=== PATIENT | male | born 1935 | race Caucasian/White ===

== ENCOUNTER 2021-12-18 12:01 | Emergency (ER) | payer OTHER ==
[~2021-12-18] VITALS: Ht 172.7 cm; Wt 65.8 kg
[2021-12-18 12:20] VITALS: BP_SYST 147
[2021-12-18 17:27] LABS: BASOPHILS % (AUTO) 0.4 % (0.0-2.0); EOSINOPHILS % (AUTO) 0.3 % (0.0-4.0); HEMATOCRIT 33.5 % (36-54); LYMPHOCYTES # (AUTO) 0.9 K/uL (1.0-5.5); LYMPHOCYTES % (AUTO) 13.9 % (20.5-51.5); MEAN CORPUSCULAR HEMOGLOBIN 29 pg (27-31); MEAN CORPUSCULAR HGB CONC 33 % (32-36); MEAN CORPUSCULAR VOLUME 88 fL (79.0-98.0); MONOCYTES # (AUTO) 0.5 K/uL (0.0-1.0); MONOCYTES % (AUTO) 7.1 % (1.7-9.3); NEUTROPHILS # (AUTO) 5.1 K/uL (1.8-7.7); NEUTROPHILS % (AUTO) 78.3 % (40.0-70.0); PLATELET COUNT (AUTO) 181 K/uL (130-430); RED BLOOD CELL COUNT(AUTO) 3.82 MIL/uL (4.2-6.2); RED CELL DISTRIBUTION WIDTH 14.7 % (9.0-15.0); WHITE BLOOD COUNT (AUTO) 6.5 K/uL (4.8-10.8)
[2021-12-18 18:17] LABS: ANION GAP 10 (5-15); CHLORIDE 100 mmol/L (98-107); CREATININE 1.04 mg/dL (0.55-1.30); GLUCOSE 275 mg/dL (70-99); POTASSIUM 3.5 mmol/L (3.5-5.1); SODIUM SERUM 137 mmol/L (136-145); UREA NITROGEN, BLOOD 11 mg/dL (8-21)
[2021-12-18 18:23] LABS: ALANINE AMINOTRANSFERASE 24 U/L (12-78); ALBUMIN 2.8 g/dL (3.4-4.8); ASPARTATE AMINOTRANSFERASE 21 U/L (10-37); TOTAL BILIRUBIN 0.6 mg/dL (0.0-1.0)
[2021-12-18] MEDS ORDERED: KETOROLAC TROMETHAMINE 15 MG VIAL IM ONE (18:45)
--- NOTE | 2021-12-18 22:05 | NUR ---
Patient to ER bed 08 to gown for evaluation. Side rails up.
[2021-12-18 22:14] LABS: CLARITY/URINE CLEAR (CLEAR); COLOR,URINE YELLOW (YELLOW); PROTEIN URINE 3+ (NEGATIVE)
[2021-12-18 22:15] LABS: BACTERIA,URINE RARE /HPF (None Seen); BILIRUBIN,URINE NEGATIVE (NEGATIVE); BLOOD, URINE 2+ (NEGATIVE); GLUCOSE,URINE 2+ (NEGATIVE); KETONES,URINE NEGATIVE (NEGATIVE); LEUKOCYTE ESTERASE ,URINE NEGATIVE (NEGATIVE); NITRITE, URINE NEGATIVE (NEGATIVE); WBC,URINE 0-3 /HPF (0-3)
[2021-12-18 22:16] LABS: MUCUS,URINE 1+ /LPF (None Seen)
--- NOTE | 2021-12-18 22:46 | NUR ---
Pt ambulatory from home with c/o left lower extremity pain x 4 days ago. 8/10, sharp, radiated on the leg, worsening with range of motion. Denies any injury/trauma. (+) swelling to left knee noted. Denies N&V, cough or congestion. PMH: DM, HTN, high cholesterol. Arrived to ED in no acute distress. Breathing adequately on RA. Family member at bedside.
[2021-12-18] MEDS ORDERED: IBUP-1969 PO (23:34)
--- NOTE | 2021-12-18 23:40 | NUR ---
L knee immobilizer applied as ordered. Denies any pain/discomfort post application.
[2021-12-18 23:50] VITALS: BP_SYST 128
--- NOTE | 2021-12-19 00:03 | NUR ---
Patient given written and verbal discharge instructions and verbalizes understanding. ER MD Sow discussed with patient the results and treatment provided. Patient in stable condition. ID arm band removed. Rx of Motrin sent to pharmacy of choice. Patient educated on pain management and to follow up with PMD. Pain Scale 1/10. Opportunity for questions provided and answered. Medication side effect fact sheet provided.
== END 2021-12-18 23:50 | disposition home or self-care (01) ==
LOC: SED 12:01
DX: M25.562 Pain in left knee (principal); M79.662 Pain in left lower leg; E11.9 Type 2 diabetes mellitus without complications; I10 Essential (primary) hypertension; Z79.899 Other long term (current) drug therapy
CPT/HCPCS: 99285; 93970; 29505; 80053; 81000; 85025; 36415; 73560; 96372; J1885